=== PATIENT | male | born 1965 | race Asian ===

== ENCOUNTER 2024-06-04 08:17 | Outpatient (CLI) | payer OTHER | END 2024-06-04 08:18 | disposition home or self-care (01) | LOC: CSHCT 08:17 | PROVIDERS: ATTEND Nurse Practitioner Family | DX: R10.32 Left lower quadrant pain (principal); K63.9 Disease of intestine, unspecified; R59.0 Localized enlarged lymph nodes; K80.20 Calculus of gallbladder without cholecystitis without obstruction; K42.9 Umbilical hernia without obstruction or gangrene | CPT/HCPCS: 74176 ==